=== PATIENT | female | born 1970 | race Caucasian/White ===

== ENCOUNTER 2016-12-28 11:54 | Emergency (ER) | payer OTHER ==
[~2016-12-28] VITALS: Ht 165.1 cm; Wt 140.2 kg
[~2016-12-28 11:54] MED LIST: CAMILA0.35 MG PO; CYANOCOBALAM1000 MCG PO; DAILY VALUE1 EACH PO; DESYREL100 MG PO; ENDOCET 5-3251 EACH PO; FISH OIL 1,0001 EAC7 PO; GLUCOPHAGE1000 MG PO; IBUPROFEN800 MG PO; LOFIBRA54 MG PO; MUCINEX D ER T1 EACH PO; NORVASC5 MG PO; OXYCODONE-APAP1 EACH PO; SINGULAIR10 MG PO; TOPROL XL100 MG PO; ZESTRIL10 MG PO; ZOCOR20 MG PO; ZOLOFT100 MG PO; ZOLOFT50 MG PO
[2016-12-28 13:00] LABS: HEMATOCRIT 42.7 % (36.0-46.0); MCH 27.6 PG (29.0-34.0); MCHC 32.6 G/DL (30.0-36.0); MCV 84.9 FL (83-99); MEAN PLAT.VOLUME 9.3 uM^3 (9.5-12.4); PLATELET COUNT 211 K/uL (156-360); RBC DIS.WIDTH-CV 13.6 % (11.8-14.6); RBC DIS.WIDTH-SD 41.8 % (39-53); RED BLOOD COUNT 5.03 M/uL (3.80-5.20); WHITE BLOOD COUNT 5.4 K/uL (4.1-10.2)
[2016-12-28 13:10] LABS: CHLORIDE 104 mEq/L (99-109); POTASSIUM 4.3 mEq/L (3.7-5.4); SODIUM 140 mEq/L (136-147)
[2016-12-28 13:12] LABS: GLUCOSE 168 mg/dL (70-99)
[2016-12-28 13:13] LABS: ANION GAP 9 MEQ/L (2-14)
[2016-12-28 13:14] LABS: TOTAL BILIRUBIN 0.4 mg/dL (0.0-1.0)
[2016-12-28 13:15] LABS: ALKALINE PHOSPHATASE 61 IU/L (3-129)
[2016-12-28 13:16] LABS: GFR ESTIMATE (CALCULATED) 56 mL/min/
[2016-12-28 13:17] LABS: UREA NITROGEN (BUN) 13 mg/dL (9-23)
[2016-12-28 13:26] LABS: QUANTITATIVE HCG < 4.0 MIU/ML
[2016-12-28 13:30] LABS: ADD MIUA? YES; BILIRUBIN NEGATIVE; BLOOD NEGATIVE; COLOR YELLOW ((YELLOW)); GLUCOSE (STRIP) NEGATIVE; KETONES NEGATIVE; LEUKOCYTES SMALL; NITRITE NEGATIVE; PROTEIN (STRIP) 100; SPECIFIC GRAVITY 1.009 (1.000-1.030); UROBILINOGEN 0.2 MG/DL (0.2-1.0)
[2016-12-28 14:04] LABS: BACTERIA RARE /HPF; EPITHELIAL CELLS 1+ /HPF; MUCUS TRACE /LPF; RED BLOOD CELLS 0-5 /HPF (0-5); UCUL ADDED? YES; WHITE BLOOD CELLS 40-50 /HPF (0-5)
[2016-12-28] MEDS ORDERED: KEFLEX500 MG PO (15:10)
[2016-12-28] MEDS ORDERED: ULTRAM50 MG PO (15:10)
[2016-12-28 15:31] VITALS: BP 160/110
== END 2016-12-28 15:32 | disposition home or self-care (01) ==
LOC: EME 11:54
DX: N39.0 Urinary tract infection, site not specified (principal); R80.9 Proteinuria, unspecified; Q60.3 Renal hypoplasia, unilateral; I10 Essential (primary) hypertension; E11.9 Type 2 diabetes mellitus without complications; E78.5 Hyperlipidemia, unspecified; Z79.84 Long term (current) use of oral hypoglycemic drugs; Z87.891 Personal history of nicotine dependence
CPT/HCPCS: 74000; 76770; 80053; 81003; 84702; 85027; 87086; 99281; 99284

== ENCOUNTER 2017-06-23 12:10 | Emergency (ER) | payer OTHER ==
[~2017-06-23] VITALS: Ht 165.1 cm; Wt 139.7 kg
[~2017-06-23 12:10] MED LIST changes: +KEFLEX500 MG PO; +ULTRAM50 MG PO
[2017-06-23 13:09] LABS: HEMOGLOBIN 15.4 G/DL (11.9-15.5); MCH 28.3 PG (29.0-34.0); MCHC 33.5 G/DL (30.0-36.0); MCV 84.4 FL (83-99); PLATELET COUNT 267 K/uL (156-360); RBC DIS.WIDTH-CV 14.7 % (11.8-14.6); RBC DIS.WIDTH-SD 44.7 % (39-53); RED BLOOD COUNT 5.45 M/uL (3.80-5.20); WHITE BLOOD COUNT 6.5 K/uL (4.1-10.2)
[2017-06-23 13:17] LABS: CHLORIDE 104 mEq/L (99-109); POTASSIUM 4.4 mEq/L (3.7-5.4); SODIUM 138 mEq/L (136-147)
[2017-06-23 13:18] LABS: GLUCOSE 315 mg/dL (70-99)
[2017-06-23 13:22] LABS: GFR ESTIMATE (CALCULATED) > 59 mL/min/
[2017-06-23 13:23] LABS: UREA NITROGEN (BUN) 15 mg/dL (9-23)
[2017-06-23 13:29] LABS: TROP-I INTERPRETATION NEGATIVE; TROPONIN-I < 0.01 ng/mL (0.0-0.30)
[2017-06-23 14:58] LABS: TROP-I INTERPRETATION NEGATIVE; TROPONIN-I < 0.01 ng/mL (0.0-0.30)
[2017-06-23 15:45] LABS: APPEARANCE CLOUDY ((CLEAR)); BILIRUBIN NEGATIVE; BLOOD NEGATIVE; COLOR YELLOW ((YELLOW)); GLUCOSE (STRIP) 150; KETONES NEGATIVE; LEUKOCYTES LARGE; NITRITE NEGATIVE; PROTEIN (STRIP) 100; SPECIFIC GRAVITY 1.023 (1.000-1.030); UROBILINOGEN 0.2 MG/DL (0.2-1.0)
[2017-06-23 16:10] LABS: RED BLOOD CELLS NONE SEEN /HPF (0-5); WHITE BLOOD CELLS 30-40 /HPF (0-5)
[2017-06-23 16:11] LABS: BACTERIA 1+ /HPF; EPITHELIAL CELLS 2+ /HPF; MUCUS NONE SEEN /LPF
[2017-06-23] MEDS ORDERED: BACTRIM,SEPT1 TABLET PO (16:13)
[2017-06-23 16:29] VITALS: BP 127/86
== END 2017-06-23 16:36 | disposition home or self-care (01) ==
LOC: EME 12:10
PROVIDERS: Nurse Practitioner Family
DX: N39.0 Urinary tract infection, site not specified (principal); R07.89 Other chest pain; E11.65 Type 2 diabetes mellitus with hyperglycemia; Z79.84 Long term (current) use of oral hypoglycemic drugs; J44.9 Chronic obstructive pulmonary disease, unspecified; G47.30 Sleep apnea, unspecified; E78.5 Hyperlipidemia, unspecified; Z87.891 Personal history of nicotine dependence; Z90.5 Acquired absence of kidney; Z90.49 Acquired absence of other specified parts of digestive tract; Z90.710 Acquired absence of both cervix and uterus
CPT/HCPCS: 71046; 80048; 81003; 84484; 85027; 93005; 99281; 99284; J7030

== ENCOUNTER → 2017-10-30 | Outpatient (CLI) | payer OTHER ==
[~2017-10-30] MED LIST changes: +BACTRIM,SEPT1 TABLET PO
== END | disposition home or self-care (01) ==
LOC: AMB 08:59 → OPR 09:30 → AMB 09:30
PROVIDERS: Internal Medicine
DX: K29.70 Gastritis, unspecified, without bleeding (principal); I99.8 Other disorder of circulatory system; R19.7 Diarrhea, unspecified; J45.909 Unspecified asthma, uncomplicated; E11.21 Type 2 diabetes mellitus with diabetic nephropathy; E11.42 Type 2 diabetes mellitus with diabetic polyneuropathy; E78.2 Mixed hyperlipidemia; E11.59 Type 2 diabetes mellitus with other circulatory complications; I10 Essential (primary) hypertension; Q60.5 Renal hypoplasia, unspecified; E66.01 Morbid (severe) obesity due to excess calories; Z86.19 Personal history of other infectious and parasitic diseases; Z90.49 Acquired absence of other specified parts of digestive tract; Z82.49 Family history of ischemic heart disease and other diseases of the circulatory system; Z83.3 Family history of diabetes mellitus; Z80.49 Family history of malignant neoplasm of other genital organs; Z80.8 Family history of malignant neoplasm of other organs or systems; Z68.42 Body mass index [BMI] 45.0-49.9, adult; Z87.891 Personal history of nicotine dependence; Z79.84 Long term (current) use of oral hypoglycemic drugs
CPT/HCPCS: 82948; 88305; 88342 TC; J3010